=== PATIENT | female | born 1990 ===

== ENCOUNTER 2018-07-22 06:54 | Inpatient (IN) | payer MEDICAID ==
[2018-07-22 07:22] VITALS: BMI 32.4
[2018-07-22] MEDS ORDERED: Lactated Ringer's 1,000 ML IV ONE (07:46)
[2018-07-22] MEDS ORDERED: ceFAZolin 2 GM in Sodium Chloride 0.9% 100 ML IVPB ONE (07:46)
[2018-07-22] MEDS ORDERED: Lactated Ringer's 1,000 ML IV SCH (08:00)
[2018-07-22] MEDS: Lactated Ringer's 1,000 ML IV ONE ×2 (08:10→09:10)
[2018-07-22 08:22] LABS: BASO % 0.3 % (0.0-2.0); EOS # 0.1 K/uL (0.0-0.7); EOS % 1.4 % (0.0-4.0); HEMOGLOBIN 12.3 g/dL (12.0-16.0); LYMPH # 1.6 K/uL (1.0-4.3); LYMPH % 18.5 % (20.0-40.0); MEAN CELL VOLUME 85.2 fl (81.0-99.0); MEAN CORPUSCULAR HEMOGLOBIN 28.2 pg (27.0-31.0); MEAN CORPUSCULAR HGB CONC 33.1 g/dL (33.0-37.0); MEAN PLATELET VOLUME 9.5 fl (7.2-11.7); MONO # 0.6 K/uL (0.0-0.8); MONO % 6.3 % (0.0-10.0); NEUT # 6.5 K/uL (1.8-7.0); NEUT % 73.5 % (50.0-75.0); NRBC % 0.2 % (0.0-0.0); RBC 4.35 Mil/uL (3.80-5.20); RED CELL DISTRIBUTION WIDTH 14.5 % (11.5-14.5); WHITE BLOOD COUNT 8.8 K/uL (4.8-10.8)
[2018-07-22] MEDS ORDERED: Oxytocin 30 UNIT in NS 500 ml 30 UNITS/500 ML BAG IV ONE (08:28)
[2018-07-22] MEDS ORDERED: OXYTOCIN/0.9 % NS 20 UNIT/1,000 ML BAG IV SCH ×3 (08:30→18:32)
--- NOTE | 2018-07-22 08:36 | OBADHP ---
Datetime: 07/22/2018 08:20 IP Chief Complaint Other: Breech presentation Admit Comment, IP Provider: [id number] IUP at 39+w breech presentatoin....schedueld for C/S. +FM; no CTX; no VB; no SROM PMH: PCOS; migraines PSH: breast implants; sinus; tonisllectomy NKA POBGYNH: no STD; A: IUP at 39W breech presentatoin PLAN: Admit for C/S Condition, procedure (C/S) with its riks/complications explained in detail. Her questions answer ed. Informed consent obtianed after her full understanding. MAHNDO Pelvic Type - PN: Adequate Extremities - PN: Normal Abdomen - PN: Normal Back - PN: Normal Breast - PN: Not Done Lungs - PN: Normal Heart - PN: Normal Thyroid - PN: Normal Neurologic - PN: Normal HEENT - PN: Normal General - PN: Normal Presentation-Admit: Breech IP Fetus A Comments: Sonogram breech FHR - Baseline A Provider: 140 Pool Provider: Negative IP Hx Assessment: The History has been Reviewed and is Current Vital Signs Provider: Reviewed NICHD Variability Prov Fetus A: Moderate 6-25bpm NICHD Accel Fetus A IP Provider: [id number] FHR Category Provider Fetus A: Category I NICHD Decel Fetus A IP Provider: None Genitourinary Exam: Normal DTRs - PN: Normal IP Adm Impression: Term, intrauterine ; No Active Labor; Intact Membranes IP Admit Plan: Admit to unit; Initiate Section protocol
[2018-07-22] MEDS ORDERED: Phenylephrine 10 mg/ml Inj ONE (09:07)
[2018-07-22] MEDS ORDERED: Sodium Chloride 0.9% 10 ML IV ONE (09:07)
[2018-07-22] MEDS ORDERED: ePHEDrine 50 mg/ml Inj ONE (09:07)
[2018-07-22] MEDS ORDERED: Morphine 1 mg/ml preservative-free Inj(Duramorph) ONE (09:08)
[2018-07-22] MEDS ORDERED: Oxycodone/Acetaminophen 5/325 mg Tab PO PRN ×4 (10:40→15:02)
[2018-07-22] MEDS ORDERED: DiphenhydrAMINE 50 mg/ml Inj IVP PRN ×3 (11:03→18:32)
[2018-07-22] MEDS ORDERED: Simethicone 80 mg Chewtab PO SCH ×2 (16:00)
[2018-07-22] MEDS: Simethicone 80 mg Chewtab PO SCH (22:06)
[2018-07-23] MEDS: Simethicone 80 mg Chewtab PO SCH ×4 (05:00→21:33)
[2018-07-23] MEDS: Oxycodone/Acetaminophen 5/325 mg Tab PO PRN (05:26)
[2018-07-23 06:42] LABS: HEMOGLOBIN 10.6 g/dL (12.0-16.0); MEAN CELL VOLUME 84.8 fl (81.0-99.0); MEAN CORPUSCULAR HEMOGLOBIN 28.5 pg (27.0-31.0); MEAN CORPUSCULAR HGB CONC 33.6 g/dL (33.0-37.0); RBC 3.73 Mil/uL (3.80-5.20); RED CELL DISTRIBUTION WIDTH 14.8 % (11.5-14.5); WHITE BLOOD COUNT 10.7 K/uL (4.8-10.8)
[2018-07-23] MEDS ORDERED: Bisacodyl 5mg EC Tab PO PRN ×3 (07:30)
[2018-07-23] MEDS: Multivitamin With Minerals Tab PO SCH (08:39)
[2018-07-23] MEDS ORDERED: Multivitamin With Minerals Tab PO SCH ×2 (09:00)
--- NOTE | 2018-07-23 10:43 | OBPPN ---
Datetime: 07/23/2018 10:40 PP Pain Prov: Within normal limits PP Nausea Prov: Denies PP Flatus Prov: Yes PP BM Prov: No PP Breasts Prov: Normal PP Heart Prov: Normal PP Lungs Prov: Normal PP Abdomen/Uterus Prov: Normal PP Lochia Prov: Normal PP Vulva/Perineum Prov: Normal PP CVA Tenderness Prov: Normal PP Extremities Prov: Normal PP Comments Phys Exam Prov: Fundus firm under umbilicus PP Impression Prov: Normal progression PP Plan Prov: Continue present management PP Progress Note Prov: Patient denies CP, no SOB, no N/V, tolerating PO diet, ambulating/voiding wel l, mild lochia, +flatus, no BM, abdominal pain tolerable with meds A/P POD #1 1. Continue post op orders 2. Motrin/Percocet prn pain 3. Encourage ambulation/ IP PP Procedures: None Vital Signs Provider PP: Reviewed; Within Normal Limits
[2018-07-24] MEDS: Oxycodone/Acetaminophen 5/325 mg Tab PO PRN (02:37)
[2018-07-24] MEDS: Simethicone 80 mg Chewtab PO SCH ×4 (03:37→22:54)
[2018-07-24] MEDS: Multivitamin With Minerals Tab PO SCH (08:10)
--- NOTE | 2018-07-24 10:02 | OBPPN ---
Datetime: 07/24/2018 08:45 PP Pain Prov: Within normal limits PP Nausea Prov: Denies PP Flatus Prov: Yes PP BM Prov: No PP Breasts Prov: Normal PP Heart Prov: Normal PP Lungs Prov: Normal PP Abdomen/Uterus Prov: Normal PP Lochia Prov: Normal PP Vulva/Perineum Prov: Normal PP CVA Tenderness Prov: Normal PP Extremities Prov: Normal PP Impression Prov: Normal progression PP Plan Prov: Continue present management PP Progress Note Prov: She is waling; feels fine; no BM A: S/P day 2 PLAN: cont post op care Vital Signs Provider PP: Reviewed; Within Normal Limits Datetime: 07/23/2018 10:40 PP Comments Phys Exam Prov: Fundus firm under umbilicus Incision clean/dry/intact
[2018-07-25] MEDS: Simethicone 80 mg Chewtab PO SCH ×2 (03:50→08:40)
[2018-07-25] MEDS: Multivitamin With Minerals Tab PO SCH (08:41)
[2018-07-25] MEDS: Oxycodone/Acetaminophen 5/325 mg Tab PO PRN (08:41)
--- NOTE | 2018-07-25 09:20 | OBPPN ---
Datetime: 07/25/2018 09:14 PP Pain Prov: Within normal limits PP Nausea Prov: Denies PP Flatus Prov: Yes PP Breasts Prov: Not Done PP Heart Prov: Normal PP Lungs Prov: Normal PP Abdomen/Uterus Prov: Normal PP Lochia Prov: Not Done PP Vulva/Perineum Prov: Not Done PP CVA Tenderness Prov: Normal PP Extremities Prov: Normal PP C/S Incision Prov: Normal PP Impression Prov: Normal progression PP Plan Prov: Discharge PP Progress Note Prov: Patient doing well ambulating tolerating diet Vital signs stable afebrile Physical exam uterus firm below the umbilicus Incision clean dry intact Postoperative day #3 Patient cleared for discharge No heavy lifting Nothing per vagina Prescription provided Vital Signs Provider PP: Reviewed
--- NOTE | 2018-07-25 09:23 | OBDCSUM ---
Datetime: 07/25/2018 09:20 Discharged to, Provider: Home Follow up at, Provider: Bhavesh Discharge Diagnosis, Provider: Term Delivered Follow up in weeks, Provider: 1 week Disch Activity Restrictions: Nothing in vagina - Hines, tampons, douche Discharge Comment, Provider: Patient cleared for discharge Contraception after Delivery: Undecided
[2018-07-25 16:43] VITALS: BP 106/71; PULSE 83; RESP 20; TEMP 98.2; O2SAT 97
--- NOTE | 2018-07-26 08:23 | OP ---
PROCEDURE DATE: 07/22/2018 PREOPERATIVE DIAGNOSIS: Intrauterine at 39 weeks' gestation, breech presentation. POSTOPERATIVE DIAGNOSIS: Intrauterine at 39 weeks' gestation, breech presentation. PROCEDURE: Primary low-transverse section via Pfannenstiel incision. SURGEON: Prosper Ospina DO INTERIOR DESIGN PRINCIPAL: Omar Cazares MD. Dr. mOar Cazares is a board certified [employer] physician, who was available for this surgical case. His presence was vital and necessary for the procedure. He was present from the time of skin incision to the delivery of the to the closure of the skin (there were no other surgical garment inspector available). ANESTHESIOLOGIST: Mckinley Crystal MD ANESTHESIA: Spinal. OPERATIVE FINDINGS: A live female , delivered from the rani breech presentation. was crying spontaneously. Clear amniotic fluid noted. Placenta was delivered intact manually. Ovaries and tubes appeared to be within normal limits. She remained hemodynamically stable throughout the procedure. ESTIMATED BLOOD LOSS: 800 mL. POSTOPERATIVE CONDITION: She was transferred to the recovery room in stable condition. DESCRIPTION OF PROCEDURE: The patient was brought to the operating room. She had spinal anesthesia by Dr. Crystal and was placed in a supine position. Compression boots were placed on both lower extremities. The catheter was draining clear urine and left in place. She was draped and prepped in usual sterile manner. Once checked and adequate anesthesia was obtained, a Pfannenstiel incision was made using a scalpel. The incision was then taken down to the underlying fascia using electrocautery. Fascia was nicked at the midline and extended bilaterally using electrocautery. Inferior aspect of the fascia was grasped using two Alexey clamps, tented up, and the rectus muscle was both bluntly and sharply dissected. The same was done with the superior aspect of the fascia. In the midline superiorly, the rectus muscle was bluntly. Peritoneum was identified and entered bluntly. The incision was then extended superiorly and inferiorly with direct visualization of the bladder and intestines. Bladder blade was then inserted. Two wet lap pads were placed on the paracolic gutters. Bladder flap was created by incising peritoneum on the uterus and extending it bilaterally using Metzenbaum scissors. Bladder flap was created digitally. Bladder blade was then inserted behind the bladder flap. A low transverse incision was made using a scalpel. Upon entering the uterus, the incision was then extended bilaterally using bandage scissors. Rupture of membranes was performed using forceps with teeth, presenting part was the 's buttocks. This was carefully brought through the uterine and skin incision. Both legs were delivered as atraumatically as possible. The infant was also delivered from rani presentation as atraumatically as possible. Once the 's head was delivered, the infant was crying spontaneously. The cord was clamped and cut. was handed to the manager in home in attendance. Cord bloods were obtained. Placenta was delivered intact manually. Uterus was then exteriorized and cleared of debris and clots. Good contracture of the uterus was noted. Ovaries and tubes appeared to be within normal limits. First layer of the uterus was closed using 0 Vicryl suture, second layer of the uterus was closed using 0 Vicryl suture, both layers in interlocking fashion, second layer imbricating the first layer. Good hemostasis was assured. Posterior cul-de-sac was noted to be clear of debris and clots. Copious irrigation was performed. The uterus was placed back into the peritoneal cavity. All equipments were removed and accounted for. Incision line on the uterus was reinspected and noted to have good hemostasis. A 0 Vicryl suture was used to approximate the peritoneum in a running fashion. Rectus muscle was noted to have good hemostasis and was approximated x3 using 0 Vicryl suture. A 0 Vicryl suture was used to close the fascial layer in a running fashion. Irrigation was performed. Subcuticular layer was noted to have good hemostasis, assured using electrocautery. A 2-0 plain suture was used to approximate the subcuticular layer x3. A 3-0 Vicryl suture was used to approximate the skin. Dermabond, Steri-Strips, and pressure bandages were applied. She tolerated the procedure well and was transferred to the recovery room in stable condition. Prosper Ospina DO DOUGIE
== END 2018-07-25 12:40 | disposition home or self-care (01) | DRG 371 ==
LOC: H.L&D 07:49 → H.OB/GYN 14:40
PROVIDERS: ADMIT Obstetrics & Gynecology; ATTEND Obstetrics & Gynecology
PROC: 10D00Z1 Extraction of Products of Conception, Low, Open Approach (ICD-10-PCS; principal; 2018-07-22)
PROC: 4A1HXCZ Monitoring of Products of Conception, Cardiac Rate, External Approach (ICD-10-PCS; 2018-07-22)
DX: O32.1XX0 Maternal care for breech presentation, not applicable or unspecified (principal); Z3A.39 39 weeks gestation of pregnancy; Z37.0 Single live birth; Z98.82 Breast implant status; O99.284 Endocrine, nutritional and metabolic diseases complicating childbirth; E28.2 Polycystic ovarian syndrome